=== PATIENT | male | born 1995 | race Caucasian/White ===

== ENCOUNTER 2016-10-12 | Emergency (ER) | payer BC, OTHER ==
--- NOTE | 2016-10-12 21:20 | ED ---
General Adult HPI - General Chief complaint: ENT Stated complaint: Sinus pain Time Seen by Provider: 10/12/16 20:41 Source: patient, RN notes reviewed Mode of arrival: ambulatory Limitations: no limitations - History of Present Illness Initial comments: This is a 20-year-old male who presents with right upper jawline swelling. Patient states this started today. Patient states he was diagnosed with a sinus infection today at an urgent care. Patient was put on a course of azithromycin. Patient states the swelling was present before he started his course of antibiotics and has never had a reaction to azithromycin before. Patient states the swelling to the right upper jawline has gotten worse and more painful. Patient denies any purulent drainage from teeth or foul odor. Patient states he gets sinus infections frequently with some associated tooth pain but not like this. Patient denies any fever/chills, nausea/vomiting/ diarrhea/visual changes/headache. Patient has taken 2 doses of azithromycin so far. Patient denies any recent shortness breath, chest pain, abdominal pain, back pain, numbness, tingling, hematuria or any other complaints. - Related Data Home Medications Medication Instructions Recorded Confirmed carBAMazepine [Carbatrol] 400 mg PO QAM 04/18/16 10/12/16 carBAMazepine [Carbatrol] 600 mg PO HS 04/18/16 10/12/16 Azithromycin [Zithromax Z-pack] 0 mg PO DIRECTED 10/12/16 10/12/16 Allergies Allergy/AdvReac Type Severity Reaction Status Date / Time No Known Allergies Allergy Verified 04/17/16 18:36 Review of Systems ROS Statement: Those systems with pertinent positive or pertinent negative responses have been documented in the HPI. ROS Other: All systems not noted in ROS Statement are negative. Past Medical History Past Medical History: Seizure Disorder Additional Past Medical History / Comment(s): epilespy - Pt. stated, "I have not had a seizure in years. I can't even remember how long it's been." History of Any Multi-Drug Resistant Organisms: None Reported Past Surgical History: No Surgical Hx Reported Past Psychological History: No Psychological Hx Reported Smoking Status: Never smoker Past Alcohol Use History: None Reported Past Drug Use History: None Reported - Past Family History Mother Family Medical History: Cancer Additional Family Medical History / Comment(s): Mom and sister - cholecystitis, Maternal grandfather - colon cancer, Maternal grandmother - brain aneurysm Father Family Medical History: Coronary Artery Disease (CAD) General Exam - General Exam Comments Initial Comments: General: The patient is awake and alert, in no distress, and does not appear acutely ill. Eye: Pupils are equal, round and reactive to light, extra-ocular movements are intact. No pain with extraocular movements. No nystagmus. There is normal conjunctiva bilaterally. No signs of icterus. Ears: TMs pink and pearly with intact cone of light bilaterally. Normal external ear canals. Nose: Nasal turbinates slightly erythematous and edematous. No tenderness to frontal or maxillary sinuses. Mouth and throat: There is mild tenderness to tooth #2 but no associated erythema, purulent drainage, swelling or visible cavity. Patient has some external facial swelling of the right upper jaw line that is tender to palpation. There are moist mucous membranes and no oral lesions. Neck: The neck is supple, there is no tenderness or JVD. Cardiovascular: There is a regular rate and rhythm. No murmur, rub or gallop is appreciated. Respiratory: Lungs are clear to auscultation, respirations are non-labored, breath sounds are equal. No wheezes, stridor, rales, or rhonchi. Musculoskeletal: Normal ROM, no tenderness. Strength 5/5. Sensation intact. Radial Pulses equal bilaterally 2+. Neurological: A&O x 3. CN II-XII intact, There are no obvious motor or sensory deficits. Coordination appears grossly intact. Speech is normal. Skin: There is mild external facial swelling to the right upper jawline that is tender to palpation. Skin is warm and dry and no rashes or lesions are noted. Psychiatric: Cooperative, appropriate mood & affect, normal judgment. Limitations: no limitations Course Vital Signs 10/12/16 20:37 Temperature 97.0 F L Pulse Rate 89 Respiratory 17 Rate Blood Pressure 141/89 O2 Sat by Pulse 100 Oximetry Medical Decision Making - Medical Decision Making This is a 20-year-old male presents with right facial swelling to the upper right side jaw. On physical exam there is mild tenderness to tooth #2 but no associated erythema, purulent drainage, swelling or visible cavity. Patient has some external facial swelling of the right upper jaw line that is tender to palpation. There are moist mucous membranes and no oral lesions. Patient is afebrile in the EC. I discussed with patient that since he is already on azithromycin to continue this and finish the entire course of antibiotics. I discussed [id number] Tylenol and or Motrin as needed for any pain. I discussed follow-up with a dentist. Discussed that patient should follow up with PCP in one to 2 days or return to the [facility] for any worsening symptoms or any further concerns. Patient and parent were receptive to this plan patient was discharged home. I discussed this case with attending physician Dr. Cedillo and he agrees with plan as stated above. Disposition Clinical Impression: Pain, dental Disposition: HOME SELF-CARE Condition: Good Instructions: Toothache (ED) Additional Instructions: Wheeze finish entire course of antibiotic. Please use [id number] Tylenol or Motrin as needed for any pain. Please follow-up with a dentist as soon as possible. [facility] dental plan: [id number] [place] [address], . [employer]: Have to pay $50 for x-rays and the rest is covered. [phone]. Please use medication as discussed. Please follow-up with family doctor in the next 2 days of symptoms have not improved. Please return to emergency room if the symptoms increase or worsen or for any other concerns. Referrals: None,Stated [Primary Care Provider] - 1-2 days Time of Disposition: 21:28
== END 2016-10-12 21:31 | disposition home or self-care (01) ==

== ENCOUNTER 2017-12-19 18:54 | Emergency (ER) | payer OTHER, BC ==
[2017-12-19 19:41] VITALS: BP 139/76; PULSE 79; RESP 18; TEMP 98.7
--- NOTE | 2017-12-19 20:12 | ED ---
Upper Extremity HPI - General Chief Complaint: Extremity Injury, Upper Stated Complaint: Shoulder pain-[facility] Time Seen by Provider: 12/19/17 19:47 Source: patient, RN notes reviewed Mode of arrival: ambulatory Limitations: no limitations - History of Present Illness Initial Comments: This is a 22-year-old male who presents to the emergency department with chief complaint of left shoulder pain. Patient states that since last Monday he has been experiencing a dull achy pain in his left upper extremity. He states that it starts in his shoulder and then migrates to his elbow and her wrist. Patient denies any falls, injuries or trauma. He denies any numbness or tingling. 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 He states that he has a history of a broken right arm and also thinks he may be decompensating by overusing his left arm. Denies fever, chills, chest pain, shortness of breath, abdominal pain, nausea or vomiting, constipation or diarrhea, dysuria or hematuria, numbness or tingling, headache or vision changes. - Related Data Home Medications Medication Instructions Recorded Confirmed carBAMazepine [Carbatrol] 400 mg PO QAM 04/18/16 10/12/16 carBAMazepine [Carbatrol] 600 mg PO HS 04/18/16 10/12/16 Azithromycin [Zithromax Z-pack] 0 mg PO DIRECTED 10/12/16 10/12/16 Previous Rx's Medication Instructions Recorded predniSONE 20 mg PO DAILY #3 tab 12/19/17 Allergies Allergy/AdvReac Type Severity Reaction Status Date / Time No Known Allergies Allergy Verified 12/19/17 19:41 Review of Systems ROS Statement: Those systems with pertinent positive or pertinent negative responses have been documented in the HPI. ROS Other: All systems not noted in ROS Statement are negative. Past Medical History Past Medical History: Seizure Disorder Additional Past Medical History / Comment(s): epilespy - Pt. stated, "I have not had a seizure in years. I can't even remember how long it's been." History of Any Multi-Drug Resistant Organisms: None Reported Past Surgical History: No Surgical Hx Reported Past Psychological History: No Psychological Hx Reported Smoking Status: Never smoker Past Alcohol Use History: None Reported Past Drug Use History: None Reported - Past Family History Mother Family Medical History: Cancer Additional Family Medical History / Comment(s): Mom and sister - cholecystitis, Maternal grandfather - colon cancer, Maternal grandmother - brain aneurysm Father Family Medical History: Coronary Artery Disease (CAD) General Exam - General Exam Comments Initial Comments: General: Awake and alert, well-developed; in no apparent distress. HEENT: Head atraumatic, normocephalic. Pupils are equal, round and reactive to light. Extraocular movements intact. Oropharynx moist without erythema or exudate. Neck: Supple. Normal ROM. No tenderness. Cardiovascular: Regular rate and rhythm. No murmurs, rubs or gallops. Chest symmetrical. Respiratory: Lungs clear to auscultation bilaterally. No wheezes, rales or rhonchi. Normal respiratory effort with no use of accessory muscles. Musculoskeletal: Normal range of motion of the entire left upper extremity. There is no tenderness on palpation of the shoulder, elbow or wrist. Sensation is intact. Radial pulses are 2+ equal and palpable bilaterally. No swelling, contusions or gross deformities. Skin: [place], warm and dry without rashes or lesions. Neurological: Alert and oriented x3. CN II-XII grossly intact. Speech is fluent and answers are appropriate. No focal neuro deficits. Psychiatric: Normal mood and affect. No overt signs of depression or anxiety noted. Limitations: no limitations Course Vital Signs 12/19/17 19:39 Temperature 98.7 F Pulse Rate 79 Respiratory 18 Rate Blood Pressure 139/76 O2 Sat by Pulse 100 Oximetry Medical Decision Making - Medical Decision Making This is a 22-year-old male who presents to the emergency department with chief complaint of left upper extremity pain. Patient denies any specific injuries. He describes the pain as a dull achy sensation that gets worse throughout the day at work. It starts in the shoulder and then involves his elbow and wrist. This case was discussed with attending physician, Dr. Rogers. Recommended EKG. EKG revealed sinus bradycardia. No evidence for ST segment elevation or depression. Patient will be started on 3 days worth of prednisone. He is to follow-up with his primary care provider. Patient is in no acute distress and will be discharged home. He is in agreement with plan and voices understanding. All questions were answered. EKG at 20:16:46 revealed sinus bradycardia. Moderate voltage criteria for LVH, maybe normal variant. Ventricular rate 56 bpm, VT interval 120, QRS duration 100 QT/QTc 400/386. Disposition Clinical Impression: Left arm pain Disposition: HOME SELF-CARE Condition: Good Instructions: Arm Pain (ED) Additional Instructions: Please take medications as prescribed. Please follow up with primary care provider within 1-2 days. Return to emergency department if symptoms should worsen or any concerns arise. Prescriptions: predniSONE 20 mg PO DAILY #3 tab Referrals: Rene Chung MD [Primary Care Provider] - 1-2 days Time of Disposition: 20:25
== END 2017-12-19 20:33 | disposition home or self-care (01) ==
LOC: EC 18:54
DX: M25.532 Pain in left wrist (principal); M25.512 Pain in left shoulder; M25.522 Pain in left elbow; R00.1 Bradycardia, unspecified; G40.909 Epilepsy, unspecified, not intractable, without status epilepticus; Z79.899 Other long term (current) drug therapy
CPT/HCPCS: 93005; 99283

== ENCOUNTER → 2024-05-21 | Outpatient (CLI) | payer BC, OTHER ==
--- NOTE | 2024-06-18 10:17 | MR ---
Site ID synapse default Patient Bradford Buckley ID [id number] 1995 Age/Gender: 28Y, M Order # N/A Procedure MRI BRAIN W/WO CONTRAST Date 05/21/2024 7:24:45 AM INDICATION: Patient age: Male; 28 year old; Reason for study: Family history of aneurysm. COMPARISON: None. TECHNIQUE: Multi planar, multi sequence imaging was performed through the brain. The patient was then given 7.5 cc of Gadavist intravenously and multi planar, T1 fat-saturation images were obtained. FINDINGS: The sorto-white junctions, ventricular system, basal cisterns appear unremarkable. Incidental small ca vum septum pellucidum. Diffusion-weighted imaging shows no evidence of restricted diffusion to sugges t acute/subacute infarct. Intracranial arterial flow voids are maintained. Midline structures show no abnormality. No abnormal FLAIR signal abnormality. The susceptibility weighted images do not reveal any evidence for micro-hemorrhage. After administration of gadolinium, no abnormal enhancement is see n. No sizable aneurysm identified. The bone marrow signal is within normal limits. The paranasal sinuses and globes are unremarkable. IMPRESSION: 1. No evidence of intracranial mass, acute/subacute infarct, or abnormal enhancement. 2. No sizable aneurysm identified however MRA is more sensitive for tiny aneurysms.
== END | disposition home or self-care (01) ==
LOC: RADMRIMAIN 05-20 08:04
PROVIDERS: ATTEND Family Medicine
DX: I67.1 Cerebral aneurysm, nonruptured (principal)
CPT/HCPCS: 70553; A9585